=== PATIENT | male | born 1990 | race Caucasian/White ===

== ENCOUNTER 2020-10-31 16:09 | Emergency (ER) | payer SELFPAY ==
[~2020-10-31] VITALS: Ht 175.3 cm; Wt 86.6 kg
[2020-10-31 16:10] VITALS: BP 123/85
== END 2020-10-31 17:59 | disposition left against medical advice (07) ==
LOC: M ED 16:09
DX: Z53.29 Procedure and treatment not carried out because of patient's decision for other reasons (principal)